=== PATIENT | female | born 1965 | race Caucasian/White ===

== ENCOUNTER 2017-09-30 21:29 | Emergency (ER) | payer MEDICAID, SELFPAY ==
[~2017-09-30] VITALS: Ht 157.5 cm; Wt 77.3 kg
[2017-10-01 02:40] VITALS: BP 136/82
== END 2017-10-01 02:45 | disposition home or self-care (01) ==
LOC: ED 23:59
DX: S32.592A Other specified fracture of left pubis, initial encounter for closed fracture (principal); I10 Essential (primary) hypertension; W01.0XXA Fall on same level from slipping, tripping and stumbling without subsequent striking against object, initial encounter; Y93.89 Activity, other specified; Y99.8 Other external cause status; Y92.89 Other specified places as the place of occurrence of the external cause
CPT/HCPCS: 72170; 99284

== ENCOUNTER 2017-11-01 20:43 | Emergency (ER) | payer MEDICAID ==
[2017-11-01 20:48] VITALS: BP 165/99
[2017-11-01] MEDS ORDERED: ACETAMINOPHEN 500 MG TABLET ONE (21:56)
[2017-11-01] MEDS ORDERED: DIPH,PERTUSS(ACELL),TET VAC/PF 0.5 ML IM-VACC ONE ×2 (21:57→22:00)
[2017-11-01] MEDS ORDERED: PLEASE ENTER HEIGHT AND WEIGHT MC SCH (22:00)
[2017-11-01] MEDS ORDERED: ACETAMINOPHEN 500 MG TABLET PO ONE (22:00)
[2017-11-01] MEDS ORDERED: LIDOCAINE-MPF 1%, 2ML ONE (22:24)
[2017-11-01] MEDS ORDERED: LIDOCAINE 1%, 10ML INFIL ONE (22:30)
== END 2017-11-01 23:19 | disposition home or self-care (01) ==
LOC: ED 21:43
DX: S01.21XA Laceration without foreign body of nose, initial encounter (principal); I10 Essential (primary) hypertension; Z86.73 Personal history of transient ischemic attack (TIA), and cerebral infarction without residual deficits; W16.522A Jumping or diving into swimming pool striking bottom causing other injury, initial encounter; Y93.15 Activity, underwater diving and snorkeling; Y92.34 Swimming pool (public) as the place of occurrence of the external cause; Y99.8 Other external cause status
CPT/HCPCS: 12051; 70160; 72050; 90471; 90715; 93005; 99284